=== PATIENT | female | born 1955 | race Caucasian/White ===

== ENCOUNTER 2019-07-24 15:10 | Inpatient (IN) | payer OTHER ==
[~2019-07-24] VITALS: Ht 165.1 cm; Wt 41.2 kg
[2019-07-24 15:10] VITALS: BP 112/85
--- NOTE | 2019-07-24 15:38 | NUR ---
I went to the ER to evaluate the patient to see if she would meet criteria for inpatient psych. Her son related events of the day, where the patient was throwing things and yelling at her . The patient has no memory of these events. She is in agreement with her son, that she needs inpatient psych treatment. The patient is A/Ox 1. She has an appropriate affect with a pleasant mood. Dr. Estrada was consulted he is willing to admit this patient.
[2019-07-24 15:52] LABS: URINE BILIRUBIN NEGATIVE (Negative); URINE BLOOD NEGATIVE (Negative); URINE CLARITY CLEAR; URINE COLOR YELLOW; URINE GLUCOSE-RANDOM* NEGATIVE (Negative); URINE KETONES NEGATIVE (Negative); URINE LEUKOCYTES-REFLEX NEGATIVE (Negative); URINE NITRITE-REFLEX NEGATIVE (Negative); URINE PROTEIN (DIPSTICK) NEGATIVE (Negative); URINE SPECIFIC GRAVITY 1.015 (1.005-1.035)
[2019-07-24 16:02] LABS: AMP/METHAMP Negative (Negative); BARBITURATES Negative (Negative); BENZODIAZEPINES Negative (Negative); COCAINE Negative (Negative); METHADONE Negative (Negative); OPIATES Negative (Negative); PCP Negative (Negative)
[2019-07-24 16:18] LABS: CALCIUM 9.7 mg/dL (8.5-10.1); CREATININE 0.7 mg/dL (0.6-1.0); POTASSIUM 4.2 mmol/L (3.5-5.1)
[2019-07-24 17:08] LABS: HEMATOCRIT 31.7 % (37.0-47.0); HEMOGLOBIN 10.5 gm/dL (12.0-15.0); MCH 30.9 pg (26.0-34.0); MCHC 33.1 g/dL (28.0-37.0); MCV 93.3 fL (80.0-100.0); RBC 3.4 mil/uL (4.20-5.00); WBC 4.1 thou/uL (4.0-11.0)
[2019-07-24 19:41] VITALS: BP 124/62
[2019-07-24 20:28] VITALS: BP 139/43
[2019-07-24] MEDS ORDERED: MICROZIDE12.5 MG PER TUBE (20:46)
[2019-07-24] MEDS ORDERED: TRANDATE 200 M200 M1 PER TUBE (20:47)
[2019-07-24] MEDS ORDERED: LORAZEPAM 1 MG T1 MG PER TUBE (20:48)
[2019-07-24] MEDS ORDERED: LISINOPRIL40 MG PER TUBE (20:48)
[2019-07-24] MEDS ORDERED: PANTOPRAZOLE SO40 M1 PER TUBE (20:49)
[2019-07-24] MEDS ORDERED: SENNA PLUS TAB1 EACH PO (20:50)
[2019-07-24] MEDS ORDERED: ACETAMINOPHEN325 MG PER TUBE (20:51)
[2019-07-24] MEDS ORDERED: LORAZEPAM 0.50.5 MG PER TUBE (20:52)
[2019-07-24] MEDS ORDERED: SEROQUEL 25 MG25 M1 PO (20:52)
--- NOTE | 2019-07-25 02:11 | NUR ---
Patient admitted to unit from [place] ED via cart. Patient arrived to ED from [facility] for evaluation due to "agitated behaviors". Patient has mumbled, unclear, disorganized speech. Patient is not alert or oriented to person, place, time or situation. Message left for patient's son to obtain information on patient. Message left for interim DON, Brittany Rhodes, to obtain information on patient. Spoke with nurse at [facility] who was not familiar with patient to be able to provide thorough information. Information for admission was obtained from ED records and records that were sent from [facility]. Appears that patient was admitted to [facility] approximately 1 month ago with the dx of TBI and multiple fractures. Unknown what caused TBI. Patient has a peg tube present to abdomen. Note from Dr. Bennett dated 07/22/19 states that patient "has been eating 3 meals a day, and has a PEG tube which is not being used". However, patient has orders to receive some medication per tube and an order to receive Jevity and water flushes per peg tube. This nurse spoke with Dr. Estrada regarding concern for peg tube. Due to the documentation that patient has had PO intake, ordered medications will be route of PO. Spoke with SUZETTE Granado, for admission orders. Order obtained for ST consult with swallow study if indicated. Current diet is mechanical soft per facility records. Will continue this diet unless otherwise ordered by ST. Patient Full code status. Required total assist for transfers, bed mobility and toileting needs. Incontinent of bladder. Patient has green colored bruising to posterior thighs and buttock. Attempted to collect DPOA paperwork from facility but they did not have her chart present. Appears that patient had clear speech while in ED but was nonsensical sentences. While in ED, patient was disruptive, attempting to leave bed, yelling and was provided PRN medication to stabilize behaviors. Patient has been sleeping since arriving on unit. Patient monitored for incontinence and is being turned q2 hours to alleviate pressure off buttock.
--- NOTE | 2019-07-25 06:43 | NUR ---
PATIENT ASSAULTING STAFF WHEN COMPLETING ADLS, DISRUPTING THE MILIEU WITH LOUD SCREAMING OUT. APPEARS TO BE EXPERIENCING HALLUCINATIONS OF PEOPLE THIS NURSE CANNOT SEE. IM HALDOL GIVEN ORDERED.
[2019-07-25 07:55] VITALS: BP 143/91
[2019-07-25 12:56] VITALS: BP 143/93
--- NOTE | 2019-07-25 13:50 | NUR ---
0659 Report received from overnight shift, patient this morning has been delusional. She is yelling for father and talking about babies, patient ate breakfast with assistance. Patient took medication crushed in pudding, without incidence. Patient has been yelling and annoying other patients, she was given Haldol 5 mg for agitation. Patient can be assaultive to staff when doing transfers or adl's. Patient tried to bite me on the shoulder, we will continue to monitor patient for safety.
[2019-07-25 21:19] VITALS: BP 131/72
--- NOTE | 2019-07-26 00:28 | NUR ---
Care assumed of patient at 1915: Patient seated in w/c in day room at start of shift. Patient answers to name being called but is not able to state her name. Disoriented to place, time and situation. Patient unable to answer any questions appropriately. Patient yelling and talking to unseen others. Patient has rambling, mumbled speech. No s/s of pain or discomfort observed. Patient took HS medication crushed without difficulty. Declined HS snack. Patient yelling for different people starting with uncle or cousin. Patient yelling inappropriate sexual sentences. "Come here Uncle Rafa, I can make you wet, hop on for a ride". Needs several [facility]directions [facility]. Patient attempting to hit and kick while being assisted with ADLs. Patient assisted to bedside commode prior to transferring to bed. Patient incontinent of bladder, continent of small bowel movement. Due to inappropriate sexual behaviors/comments and aggression, nurse administered PRN Haldol PO. PEG tube is in place to abdomen. Patient was able to calm down and fall asleep rather quickly once assisted to bed and has been resting quietly since.
[2019-07-26 09:38] VITALS: BP 115/67
[2019-07-26 10:19] VITALS: BP 115/67
--- NOTE | 2019-07-26 10:26 | NUR ---
0646 REPORT RECEIVED FROM OVERNIGHT SHIFT, PATIENT IS CONFUSED, YELLS DID EAT BREAKFAST. PATIENT'S MEDICATION IS CRUSHED AND GIVEN IN FOOD SHE TOOK MEDICATION WITHOUT INCIDENCE. PATIENT YELLS FOR HER FATHER, AND AN UNCLE. SHE HAS AGITATION AND SOMETIMES HITS OR TRIES TO BITE STAFF WHEN DOING ADL'S OR TRANSFERS. WE WILL CONTINUE TO MONITOR PATIENT FOR SAFETY.
--- NOTE | 2019-07-26 14:20 | NUR ---
Pt was unable to complete psychosocial assessment. SW was able to complete the assessment with Pt, son, Armin via telephone. Armin stated that Pt could not live with him due to him being unable to care for her. Armin also stated that he would like to be a part of the Pt's treatment. Armin explained that Pt does not have a DPOA or a guardian at this time, but he is seeking help in order to be over the Pt's affairs. Armin did not have any further questions or concerns.
[2019-07-26 19:51] VITALS: BP 99/43
--- NOTE | 2019-07-27 03:55 | NUR ---
HAS BEEN IN BED THIS ENTIRE COKE BURNER TO THIS POINT. REFUSED HS MEDS. HAS NOT ATTEMPTED TO BITE OR HIT STAFF WHEN CARE PROVIDED THIS SHIFT. VERY CONFUSED, UNABLE TO ANSWER SIMPLE YES OR NO QUESTIONS.
[2019-07-27 08:00] VITALS: BP 147/71
[2019-07-27 08:34] VITALS: BP 147/71
--- NOTE | 2019-07-27 08:43 | NUR ---
PT HAS ST HERE TO ASSESS SWALLOWING. PT DID WELL WITH THICKENED LIQUIDS. THIS TRANSITIONAL KINDERGARTEN TEACHER ATTEMPTED TO GIVE MED WHOLE, PT WAS CHEWING MEDS. CRUSHED MEDS AND GAVE IN PUDDING. PT TOLERATED WELL. PT NEEDS ASSISTANCE WITH FEEDING, PT KEEPS EYES CLOSED.
--- NOTE | 2019-07-27 13:05 | NUR ---
PT TOO SLEEPY TO TAKE 1300 MEDS.
--- NOTE | 2019-07-27 14:50 | NUR ---
PT RESTING AT THIS TIME. UNABLE TO GIVE 1500 MEDS.
[2019-07-27 19:57] VITALS: BP 127/61
[2019-07-27 20:04] VITALS: BP 129/79
--- NOTE | 2019-07-27 23:18 | NUR ---
Care assumed of patient at 1915: Patient seated in dayroom in w/c at start of shift. Patient has rambling, mumbling speech. Patient was able to speak some clear words talking to "Uncle Con" and "Cousin Juancho". Patient not able to answer any questions appropriately. Patient will respond to her name being called but will not tell you her last name, location, time or situation. Patient has poor eye contact, peculiar look. Appears that patient is having visual hallucinations by pointing and addressing different family members. No sexual inappropriate behaviors observed this shift. Patient took HS medication crushed without difficulty. Ate 100% HS snack with total assist. Patient fairly cooperative until being transferred to bed and toileting cares. Patient incontinent of bowel and bladder. Required total assist with staff x2 to provide jorge care and linen change. Patient hitting, kicking and yelling. Once cares completed, patient was able to calm down and fell asleep without difficulty. No s/s of pain or discomfort noted. Patient continues to have peg tube intact to abdomen.
--- NOTE | 2019-07-28 08:22 | NUR ---
TARYN called and spoke with son Armin and advised him that pt will have to return to [facility] as her stay at the [facility] will not be long enough for another placement closer to his home. He agreed to this d/c plan. TARYN then called [facility] to confirm that she will return there and is now waiting for a call back. TARYN faxed updates and a possible d/c date this week.
[2019-07-28 18:04] VITALS: BP 156/69
[2019-07-28 18:09] VITALS: BP 156/69
--- NOTE | 2019-07-28 18:15 | NUR ---
THE PATIENT IS CONFUSED AND HAS HALLUCINATIONS. SHE CONTINUES TO TALK TO SELF. THE PATIENT HAS A PEG TUBE AND IT WAS TAPED TO THE PATIENT TO STOP IT FROM HANGING DOWN. AROUND THE PEG TUBE ARE SMALL AMOUNTS OF REDDISH AND CLEAR PUS. THE PATIENT IS COMPLIANT WITH MEDICATIONS. SHE IS ALERT BUT DISORIENTED. THE PATIENT HAS A BONE STICKING OUT BELOW HER SHOULDER BLADE. DR. COURTNEY WAS CALLED TWICE REGARDING THE BONE STICKING OUT. THERE IS NO SKIN BREAK BUT IT IS QUITE ABNORMAL. THE NURSE ASKED THE DOCTOR FOR AN XRAY FOR THE PATIENT BUT HE DECLINED STATING THAT THE PATIENT IS NOT IN DISTRESS OR PAIN AND IT IS PROBABLY AN OLD INJURY. HOWEVER THE DOCTOR DID SAY THAT HE WOULD ASSESS HER AND TREAT NEEDED. THE PATIENT IS INCONTINENT AND VERY STIFF. SHE HAD A BM TODAY. CONTINUE TO MONITOR THE PATIENT.
--- NOTE | 2019-07-28 22:31 | NUR ---
Care assumed of patient at 1915: Patient sleeping in bed at start of shift. Patient easily arousable. Patient mumbling speech. No clear words spoken this evening. Patient showing no s/s of pain or discomfort. Patient took HS medication crushed without difficulty. Patient ate approximately 10% applesauce cup then pushed nurse arm away. No s/s of delusions, hallucinations or paranoia present. No aggression or agitation observed. Incontinent of bladder. Ivana care provided and linens changed without issue. Patient presents with blunted affect. No issues to report at this time. Remains calm and cooperative with cares.
--- NOTE | 2019-07-29 01:24 | NUR ---
Care assumed of patient at 1915: Nurse entered room to assess patient. Patient continually singing at a very loud volume. Patient not able to answer any questions appropriately. No s/s of pain or discomfort observed. No s/s of delusional or paranoia behaviors, AH or VH. Patient took HS medication whole without difficulty. Nurse sang to patient at a loud volume for her to focus on taking her medication and drinking water out of straw. Patient did not make any eye contact, blunted affect. Patient was able to fall to sleep approximately 30 minutes after taking medications and has slept quietly until approximately 0115. This nurse entered room at that time to see if patient had been incontinent of bladder/bowel. Patient woke up, looked up at nurse and said very clearly "hi". Nurse introduced self. Patient then stated "I am going to need a room with a TV, the room I had before had a TV, this is important". Education provided that there are no TVs in patient rooms on this floor and the doctors feel it important that she be on this floor. Patient stated "oh, ok" but did look confused. Patient incontinent of bladder. Ivana care provided, linens changed, barrier cream applied to buttock which appears reddened and excoriated. Patient was able to state that she is at [facility], the current month and year, her birthdate, the facility that she resides at. Denies pain or discomfort. Patient states that she is able to walk around at her previous facility with a walker. Patient asked what she needed to do if she had to use the bathroom. Patient provided a call [facility]well and was educated on use. Patient able to turn side to side in bed with mod assist x2. Patient was asked if she remembered singing earlier in the night, she stated yes. She stated that she sings to relieve her stress. Patient educated that it is important to respect other patients and if she is asked to lower her singing volume, she needs to respect that. Patient states she understood. Patient also educated that it is important to work with the doctors and all staff when she is asked questions and to participate in her care plan. Patient stated she understood. Patient is resting quietly in bed at this time.
--- NOTE | 2019-07-29 07:00 | NUR ---
Assumed care of patient this am. Patient talking, rambling, but not appropriately able to answer questions. Patient ambulates via wheelchair. Patient takes medications crushed in applesauce with encouragement. Patients assessment reveals clear breath sounds, active bowel sounds, s1 s2 heard upon auscultation. Vital signs stable.
[2019-07-29 07:30] VITALS: BP 114/70
[2019-07-29 09:16] VITALS: BP 114/70
--- NOTE | 2019-07-29 13:15 | NUR ---
TARYN met with pt's son Armin and Dr estrada. Armin syed not have any cocnerns and reported that his visit with his mom was back to her new base line. Pt will d/c tomorrow at 9:30 am back to [facility]. Taryn will set up transposrtation and reported this to Armin and Dr Estrada.
[2019-07-29 19:42] VITALS: BP 116/72
--- NOTE | 2019-07-30 02:48 | NUR ---
PATIENT ASSESSED AND ALERT TO NAME ONLY. SKIN WARM AND DRY . RESP EVEN AND UNLABORED. NO AGGRESSION NOTED. TAKES PUREED DIET AND NECTAR THICKEN FLUIDS WELL. MED CRUSHED AND PLACED IN APPLESAUSE. TAKEN WQELL. SITS IN W/C WITH LAP REJI IN DINNING ROOM. PLACED TO BED AND WAS INCONT OF URINE. WEARS BREIFS WHILE UP IN W/C. PEG TUBE DRY AND DOES HAVE SMALL AMOUNT OF DRAINAGE GREENISH IN COLOR. AREA CLEANED AND LEFT OPEN TO AIR. IS A TOTAL ASSIST PATIENT OF 1-2 PERSONS. WILL BE DC IN AM. INVENTORY DONE AND WILCOX PANTS ARE MISSING. STAFF WILL CHECK IN AM WITH FAMILY. VS STABLE. DENIES ANY PAIN OR SOA. BEHAVIOR HAS BEEN NORMAL THIS SHIFT SO FAR. CONT TO MONITOR BEHAVIOR. NO AH/VH NOTED. WAS COOPERATIVE WITH STAFF.
[2019-07-30 06:15] LABS: HEMOGLOBIN 10.4 gm/dL (12.0-15.0); MCH 31.3 pg (26.0-34.0); MCHC 33.6 g/dL (28.0-37.0); RBC 3.33 mil/uL (4.20-5.00); RDW 13.8 % (10.5-14.5); WBC 3.6 thou/uL (4.0-11.0)
[2019-07-30 08:00] VITALS: BP 135/67
--- NOTE | 2019-07-30 08:00 | NUR ---
PT NEEDING HELP EATING BREAKFAST, PT NEEDED FED. PT DRESSED [facility]. PT UP IN W/C.
[2019-07-30 08:06] VITALS: BP 135/67
[2019-07-30 08:32] VITALS: BP 135/67
[2019-07-30] MEDS ORDERED: TRANDATE 200 M200 M1 PO (09:07)
[2019-07-30] MEDS ORDERED: BENAZEPRIL HCL40 MG PO (09:07)
[2019-07-30] MEDS ORDERED: SEROQUEL 50 MG50 MG PO (09:08)
[2019-07-30] MEDS ORDERED: HYDROCHLOROTHIA25 M1 PO (09:09)
[2019-07-30] MEDS ORDERED: LORAZEPAM 1 MG T1 MG PO (09:09)
[2019-07-30] MEDS ORDERED: OMEPRAZOLE 20 M20 M1 PO (09:10)
--- NOTE | 2019-07-30 09:19 | NUR ---
ADM HALDOL 5MG PO FOR PT YELLING AND DISRUPTING GROUP. PT SITTING BY NURSING DESK.
--- NOTE | 2019-07-30 10:00 | NUR ---
PT LEFT FOR CENTER VIA W/C VAN. PT RAMBLING ABOUT HER FATHER.
--- NOTE | 2019-07-30 10:35 | NUR ---
GAVE REPORT TO DONAVON AT [facility].
[2019-07-30 12:31] LABS: TSH 1.877 uIU/mL (0.358-3.740)
[2019-07-30 13:02] LABS: FOLIC ACID 29.2 ng/mL (8.6-58.9)
--- NOTE | 2019-08-02 15:20 | D ---
[facility] [place] [id number] DISCHARGE SUMMARY Name: LYNETTE ENRIQUEZ Room #: 523B-B DIS IN M.R.#: [id number] Admission: 07/24/19 Attend Phys: Isaias Estrada DO Discharge: 07/30/19 Date of : 53 Report #: [id number] THIS REPORT FOR: //name// CC: Isaias Estrada Pietro Akkulugari DATE OF SERVICE: 07/30/2019 INPATIENT PSYCHIATRIC DISCHARGE SUMMARY ATTENDING PHYSICIAN: Isaias Estrada DO. LOSS PREVENTION LEAD: Yoel Mansfield M.D. DISCHARGE DIAGNOSES: Major neurocognitive disorder, likely due to multiple etiologies including chronic alcoholism, traumatic brain injury with behavioral disturbance, modest improvement. Comorbidities include hypertension, gastroesophageal reflux disease, protein-calorie malnutrition. The patient is being discharged back to the [facility]. Psychiatric and medical care to be provided by the nursing facility. DIET: Magic Cup with lunch, thin liquids is fine. ACTIVITY LEVEL: As tolerated. The patient requires 24/7 memory care due to her dementia. DISCHARGE MEDICATIONS: Senna/ docusate 1 tab daily, labetalol 200 mg oral t.i.d., hold if systolic blood pressure less than 100. Lisinopril 40 mg p.o. daily, hold if BP less than 100. Seroquel 50 mg at 0900, 1500 and 2100. Lorazepam 1 mg p.o. t.i.d. p.r.n. as needed for anxiety or agitation. Hydrochlorothiazide 25 mg p.o. daily for hypertension, omeprazole oral twice daily at 0700 and 1700 before breakfast and lunch for GERD. REASON FOR ADMISSION: Back on 07/24/2019 as follows, brought to the ED with complaints of "agitated behavior." HOSPITAL COURSE: The patient was admitted to the Geriatric Psychiatry Unit and initially, it was difficult to get information. We did succeed a couple of days later in speaking with her son who came in to visit. Apparently in early June, the patient had a fall with some swelling, did not require Neurosurgery, was hospitalized at [facility]. The patient has a long history of poor psychosocial health including smoking and drinking. The patient was given a guarded prognosis at [facility] where she was seen for the traumatic brain injury. During the family meeting, it is my [facility] [address] [place] [address] DISCHARGE SUMMARY Name: LYNETTE ENRIQUEZ Room #: 523B-B [facility] Nav[place].All.#: [id number] Admission: 07/24/19 Attend Phys: Isaias Estrada DO Discharge: 07/30/19 Date of : 53 Report #: [id number] recommendation to the son that guardianship conservatorship be pursued. I never succeeded in getting an appropriate bidirectional conversation with the patient. The patient has lack of capacity to make healthcare and general-financial decisions. CONDITION AT DISCHARGE: Stable. Non-injurious to self or others. VITAL SIGNS: At discharge, BP 135/67, pulse of 74. LABORATORY DATA: This admission, CBC: White count 3.6, H and H 10.4 and 31.3, which was stable, platelet count 160,000. Vitamin B12 level 410. Folate 29.2. TSH 1.877. UDS was negative. Serum alcohol was negative on admission. On 07/24/2019, CMP shows sodium 133, potassium 4.2, chloride 97, bicarbonate 28, estimated GFR 84. Ammonia slightly elevated at 40, calcium 9.7. PHYSICAL EXAMINATION: Well developed, in wheelchair, obvious atrophy. MENTAL STATUS EXAMINATION: This is a well-appearing female appearing much older than stated age. Attention, concentration grossly impaired. Speech fluent, but not appropriate for situation. Thought process nonlinear. Thought content, said to nurse stated that she wanted to smoke. Memory impaired. Insight, judgment grossly impaired. Fund of knowledge below average. Prognosis for this patient is poor given her grossly abnormal mental status exam, varying health factors and quite guarded prognosis for cognitive recovery. Also, her BMI was 15.1. <ELECTRONICALLY SIGNED> By: Isaias Estrada DO 08/02/19 1520 [id number] Isaias Estrada DO /nt
== END 2019-07-30 10:02 | DRG 884 ==
LOC: ER 15:10 → EROBS 18:51 → SBH 18:51
PROVIDERS: Emergency Medicine; Internal Medicine; ADMIT Psychiatry & Neurology Psychiatry
DX: F01.51 Vascular dementia, unspecified severity, with behavioral disturbance (principal); E46 Unspecified protein-calorie malnutrition; Z68.1 Body mass index [BMI] 19.9 or less, adult; I10 Essential (primary) hypertension; F41.9 Anxiety disorder, unspecified; F10.10 Alcohol abuse, uncomplicated; K21.9 Gastro-esophageal reflux disease without esophagitis; F32.9 Major depressive disorder, single episode, unspecified; R47.02 Dysphasia; F29 Unspecified psychosis not due to a substance or known physiological condition; D64.9 Anemia, unspecified; D69.6 Thrombocytopenia, unspecified; Z87.820 Personal history of traumatic brain injury; Z88.0 Allergy status to penicillin; Z88.2 Allergy status to sulfonamides
CPT/HCPCS: 10880